=== PATIENT | female | born 1980 | race Two or more races ===

== ENCOUNTER 2022-06-12 15:35 | Emergency (ER) | payer OTHER ==
[2022-06-12 16:12] VITALS: RESP 18; TEMP 99; BMI 29.2
[2022-06-12] MEDS ORDERED: METOCLOPRAMIDE HCL INJECTION 10 MG/2 ML VIAL IVPB ONE (16:51)
[2022-06-12] MEDS ORDERED: SODIUM CHLORIDE 0.9% 1000 ML INFUS.BAG IV ONE (16:51)
[2022-06-12] MEDS ORDERED: ACETAMINOPHEN 1000 MG/100 ML BAG IVPB ONE (16:51)
[2022-06-12] MEDS ORDERED: METOCLOPRAMIDE HCL INJECTION 10 MG/2 ML VIAL ONE (16:56)
[2022-06-12] MEDS ORDERED: ACETAMINOPHEN INJECTION 100 ML IVPB ONE (16:56)
[2022-06-12] MEDS ORDERED: KETOROLAC TROMETHAMINE 30 MG/1 ML VIAL IVPUSH ONE (17:51)
[2022-06-12] MEDS ORDERED: LORazepam 2 MG/ML SDV VIAL IVPUSH ONE (18:00)
[2022-06-12] MEDS ORDERED: KETOROLAC TROMETHAMINE 30 MG/1 ML VIAL ONE (18:08)
[2022-06-12 18:43] LABS: ALBUMIN 3.6 g/dl (3.4-5.0); ALK PHOS 54 U/L (45-117); ANION GAP 5 MMOL/L (8-16); BILIRUBIN,TOTAL 0.4 mg/dl (0.2-1); CALCIUM 8.3 mg/dl (8.5-10); CHLORIDE 108 mmol/L (98-107); CO2 22 mmol/L (21-32); CREATININE 0.6 mg/dl (0.55-1.3); GLUCOSE,RANDOM 86 mg/dl (74-106); SGOT/AST 13 U/L (15-37); SGPT/ALT 16 U/L (13-61); SODIUM 135 mmol/L (136-145); TOT PROT 6.7 g/dl (6.4-8.2)
[2022-06-12 18:45] LABS: HEMATOCRIT 35.6 % (32.4-45.2); HEMOGLOBIN 12.4 G/dL (10.7-15.3); MCH 28.9 pg (25.7-33.7); MCHC 34.8 g/dl (32.0-36.0); PLATELET COUNT 186.8 10^3/uL (134-434); RBC 4.29 10^6/uL (3.60-5.2); RDW 15.1 % (11.6-15.6); WHITE BLOOD COUNT 5.8 10^3/uL (4.0-10.8)
[2022-06-12 19:25] VITALS: BP 122/56; PULSE 79
[2022-06-12 20:46] LABS: PLATELET ESTIMATE ADEQUATE
== END 2022-06-12 19:25 | disposition home or self-care (01) ==
LOC: FER 15:35
PROC: 3E0333Z Introduction of Anti-inflammatory into Peripheral Vein, Percutaneous Approach (ICD-10-PCS; principal; 2022-06-12)
PROC: 3E033GC Introduction of Other Therapeutic Substance into Peripheral Vein, Percutaneous Approach (ICD-10-PCS; 2022-06-12)
PROC: 3E0333Z Introduction of Anti-inflammatory into Peripheral Vein, Percutaneous Approach (ICD-10-PCS; 2022-06-12)
PROC: 3E033NZ Introduction of Analgesics, Hypnotics, Sedatives into Peripheral Vein, Percutaneous Approach (ICD-10-PCS; 2022-06-12)
PROC: 3E033GC Introduction of Other Therapeutic Substance into Peripheral Vein, Percutaneous Approach (ICD-10-PCS; 2022-06-12)
DX: R51.9 Headache, unspecified (principal); G89.29 Other chronic pain
CPT/HCPCS: 0241U-QW; 36415; 70450-TC; 80053; 81003; 81025; 84484; 85025; 87086; 93005; 96374; 96375; 99285-25